=== PATIENT | male | born 1990 | race Two or more races ===

== ENCOUNTER 2023-12-03 23:29 | Emergency (ER) | payer OTHER ==
[~2023-12-03] VITALS: Ht 172.7 cm; Wt 104.3 kg
[2023-12-04 02:21] VITALS: BP 134/82; TEMP 98.1; O2SAT 98
== END 2023-12-04 02:22 ==
LOC: ER 23:37
DX: S01.01XA Laceration without foreign body of scalp, initial encounter (principal); S29.012A Strain of muscle and tendon of back wall of thorax, initial encounter; S09.90XA Unspecified injury of head, initial encounter; Z88.0 Allergy status to penicillin; Z88.8 Allergy status to other drugs, medicaments and biological substances; V89.2XXA Person injured in unspecified motor-vehicle accident, traffic, initial encounter; Y93.89 Activity, other specified; Y92.89 Other specified places as the place of occurrence of the external cause; Y99.8 Other external cause status
CPT/HCPCS: 70450-TC; 72128-TC